=== PATIENT | male | born 1980 | race Caucasian/White ===

== ENCOUNTER 2020-05-20 19:44 | Emergency (ER) | payer BC, SELFPAY ==
--- NOTE | ~2020-05-20 | XR_ITS ---
EXAMINATION: XR chest 2V DATE: 05/20/2020 20:09 INDICATION: Chest pain TECHNIQUE: PA and lateral views of the chest are obtained. COMPARISON: None available FINDINGS: The lungs are free of acute opacities. There is no pleural effusion or pneumothorax. The ca rdiomediastinal silhouette is normal. The visualized bones and soft tissues are unremarkable. IMPRESSION: 1. No acute cardiopulmonary abnormality. Reviewed, dictated and finalized at location A.
[2020-05-20 19:47] VITALS: BP 144/91; PULSE 101; RESP 18; TEMP 36.6; O2SAT 100
--- NOTE | 2020-05-20 19:57 | ECG_ITS ---
Measurements Intervals [place] Rate: 86 P: 40 [place]: 176 QRS: 39 QRSD: 102 T: -8 QT: 334 QTc: 401 Interpretive Statements SINUS RHYTHM WITH SINUS ARRHYTHMIA BORDERLINE ST-T WAVE ABNORMALITY- INFERIOR LEADS BORDERLINE ECG Electronically Signed On 05-21-2020 6:44:13 CDT by Brian Faith D.O.
[2020-05-20 20:00] VITALS: BP 108/98; PULSE 80; RESP 20; O2SAT 94
[2020-05-20] MEDS: ASPIRIN 81 MG CHEWABLE TABLET 324 MG PO (20:32)
[2020-05-20 20:46] LABS: Basophils Percent Auto 0.3 % (0.2-1.2); Eosinophils Absolute Auto 0.1 K/mm3 (0-0.3); Eosinophils Percent Auto 0.5 % (0-4.4); Hematocrit 47.5 % (42.0-52.0); Hemoglobin 16.7 g/dL (14.0-18.0); Immature Granulocyte Absolute 0.04 K/mm3 (0.00-0.031); Immature Granulocyte Percent A 0.4 % (0-0.5); Lymphocytes Absolute Auto 2.03 K/mm3 (0.9-3.2); Lymphocytes Percent Auto 19.4 % (18.3-44.2); Mean Corpuscular HGB Conc 35.2 g/dl (32-36); Mean Corpuscular Hemoglobin 30.8 pg (26-34); Mean Corpuscular Volume 87.5 fl (80-100); Mean Platelet Volume 10.1 fl (7.4-10.4); Monocytes Absolute Auto 0.9 K/mm3 (0.1-0.6); Monocytes Percent Auto 8.4 % (2.6-8.5); Neutrophils Absolute Auto 7.4 K/mm3 (1.3-6.7); Platelet Count Result 265 k/mm3 (150-375); Red Blood Count 5.43 M/mm3 (4.6-6.20); White Blood Count 10.5 K/mm3 (4.5-10.0)
[2020-05-20 20:56] LABS: INR 0.9; Prothrombin Time 12.8 Seconds (11.1-14.7)
[2020-05-20 20:57] LABS: Anion Gap 8 mmol/L (8-16); Blood Urea Nitrogen 12 mg/dL (9-20); Calcium 9.3 mg/dL (8.4-10.2); Carbon Dioxide 26 mmol/L (22-30); Chloride 107 mmol/L (98-107); Estimated CRCL calculation 99 ml/min; Estimated Glomerular Filt Rate > 60; Glucose 98 mg/dL (75-110); Potassium 4.2 mmol/L (3.4-5.0); Sodium 141 mmol/L (137-145)
[2020-05-20 21:10] LABS: Troponin I < 0.012 ng/mL (0.000-0.034)
--- NOTE | 2020-05-20 22:26 | ED.CHESTPAIN ---
HPI - Chest Pain General Chief Complaint: Chest Pain Stated Complaint: Cp x 1 week Time Seen by Provider: 05/20/20 19:58 Source: patient Mode of arrival: ambulatory Limitations: no limitations History of Present Illness HPI narrative: Patient is a 40-year-old male who presents chest pain/tightness x1 week. He reports pain initially started in the left chest and now has centered at mid chest. He denies shortness of breath. He denies cough. He denies exposure to Covid. He denies previous cardiac history. Patient denies nausea, vomiting, and diarrhea or all other complaints at this time. Patient has not taking any [id number] medication for pain relief. Patient does not have a PCP currently but has an appointment on Wednesday with new PCP. Patient reports he has not seen a PCP in approximately 20 years. MD complaint: chest discomfort Related Data Home Medications Medication Instructions Recorded Confirmed No Home Medications 05/20/20 05/20/20 Allergies Allergy/AdvReac Type Severity Reaction Status Date / Time Penicillins Allergy Unknown Verified 05/20/20 21:53 Sulfa (Sulfonamide Allergy Unknown Verified 05/20/20 21:53 Antibiotics) Review of Systems Review of Systems: Narrative: CONSTITUTIONAL: Denies fever, chills, or sweats. EYES: Denies visual changes, redness, or discharge. ENT: Denies rhinorrhea, congestion, sore throat, or otalgia. CARDIOVASCULAR: Reports chest pain, denies palpitations or edema RESPIRATORY: Denies cough or dyspnea. GASTROINTESTINAL: Denies abdominal pain, nausea, vomiting, or diarrhea. GENITOURINARY: Denies dysuria or hematuria. SKIN: Denies rash or itching. MUSCULOSKELETAL: Denies back pain, joint pain, or myalgia. NEUROLOGIC: Denies headache, numbness, dizziness, or weakness. PSYCHIATRIC: Denies anxiety or depression. [facility] Past Medical History Medical History (Updated 05/20/20 @ 22:28 by SHERRY Noble) No significant past medical history Surgical History Surgical History (Updated 05/20/20 @ 22:28 by SHERRY Noble) No significant past surgical history Family History Family History (Updated 05/20/20 @ 22:28 by SHERRY Noble) Other No significant family history Social History Social History (Updated 05/20/20 @ 22:29 by SHERRY Noble) Smoking status: Never smoker Alcohol intake: current Alcohol use details: daily Substance use: never Comments At the time of signature, I have reviewed and agree with nursing past medical, surgical, social, and family history unless otherwise noted. Please see nursing chart for further information. There is no relevant family history pertinent to the presenting complaint. Exam Narrative: Exam Narrative: GENERAL: Well-appearing, well-nourished, and in no acute distress. HEAD: Normocephalic, atraumatic. EYES: No redness or drainage. ENT: Mucous membranes pink and moist. CHEST: No respiratory distress. Clear to auscultation. HEART: Regular rate and rhythm. No murmur appreciated. Normal peripheral pulses. GI: Soft, nontender without rebound, or guarding. No distention. MUSCULOSKELETAL: No bony tenderness. EXTREMITIES: Normal range of motion. No edema. SKIN: Warm, dry, no rash. NEURO: No focal deficits. Alert and oriented x3. Gait steady. PSYCH: Normal affect. No signs of depression or anxiety. Course Vital Signs Vital signs: Vital Signs Temperature 36.6 C 05/20/20 19:47 Pulse Rate 101 H 05/20/20 19:47 Respiratory Rate 18 05/20/20 19:47 Blood Pressure 144/91 H 05/20/20 19:47 Pulse Oximetry 100 05/20/20 19:47 Temperature 36.6 C 05/20/20 19:47 Pulse Rate 80 05/20/20 20:00 Respiratory Rate 20 05/20/20 20:00 Blood Pressure 108/98 H 05/20/20 20:00 Pulse Oximetry 94 05/20/20 20:00 Reviewed. Patient has been instructed to follow-up with his PCP regarding his blood pressure. MDM - Chest Pain Lab Data Result diagrams: 05/20/20 20:40
[2020-05-20 23:29] VITALS: BP 116/88; PULSE 68; RESP 20; O2SAT 98
[2020-05-20 23:41] LABS: Troponin I < 0.012 ng/mL (0.000-0.034)
[2020-05-20 23:55] VITALS: BP 111/78; PULSE 70; RESP 22; O2SAT 98
== END 2020-05-20 23:55 | disposition home or self-care (01) ==
PROVIDERS: Emergency Medicine; Emergency Provider Nurse Practitioner
DX: R07.89 Other chest pain (principal); R94.31 Abnormal electrocardiogram [ECG] [EKG]
CPT/HCPCS: 36415; 71046; 80048; 84484; 85025; 85610; 85730; 93005; 99284; A9270